=== PATIENT | female | born 1990 | race Hispanic/Latino ===

== ENCOUNTER → 2021-02-24 | Day surgery (SDC) | payer BC ==
[~2021-02-24] MED LIST: CARAFATE1 GM PO; CEPACOL SORE THROAT LOZENGES PO ONE; FENTANYL CITRATE/PF 100MCG/2 ML INJ ONE; LIDOCAINE HCL 2% LOCAL INJ 5 ML SDV VIAL INJ ONE; METOCLOPRAMIDE HCL 10 MG/2ML VIAL IV SCH; MIDAZOLAM HCL 2 MG/2 ML VIAL ONE; OMEPRAZOLE40 MG PO; PANTOPRAZOLE SO40 MG PO; PROPOFOL IV EMULSION 10 MG/ML 20 ML VIAL ONE; TUMS PO; ZOFRAN4 MG PO
[2021-02-24 10:00] VITALS: BP 126/82
== END | disposition home or self-care (01) ==
LOC: ENDO 07:45
PROVIDERS: ATTEND Internal Medicine Gastroenterology
DX: K29.60 Other gastritis without bleeding (principal); K20.90 Esophagitis, unspecified without bleeding; K21.9 Gastro-esophageal reflux disease without esophagitis; K31.89 Other diseases of stomach and duodenum; K59.09 Other constipation; J45.909 Unspecified asthma, uncomplicated; E78.5 Hyperlipidemia, unspecified; R56.9 Unspecified convulsions; R73.03 Prediabetes; N20.0 Calculus of kidney; Z88.6 Allergy status to analgesic agent; Z01.812 Encounter for preprocedural laboratory examination; Z20.822 Contact with and (suspected) exposure to COVID-19; Z68.31 Body mass index [BMI] 31.0-31.9, adult; Z80.0 Family history of malignant neoplasm of digestive organs; Z83.71 Family history of colonic polyps
CPT/HCPCS: 43239; 43450; 81025; C9113; J2001; J2250; J2704; J2765; J3010; U0002